=== PATIENT | female | born 1960 | race Caucasian/White ===

== ENCOUNTER → 2016-06-26 | Day surgery (SDC) | payer BC ==
[~2016-06-26] MED LIST: ACETAMINOPHEN 1000 MG/100 ML VIAL IV ONE; BUPIVACAINE/EPINEPHRINE 0.25% 50 ML VIAL ONE; ISOSULFAN BLUE 50 MG/5 ML VIAL SQ ONE; KETOROLAC TROMETHAMINE 30 MG/ML (IVP) VIAL ONE; LACTATED RINGER'S 1000 ML INJ 1,000 ML ONE; LEVO-154 PO; MELO-1 PO; MIDAZOLAM HCL 2 MG/2 ML VIAL ONE; OMEP20TA PO; ONDANSETRON HCL 4 MG/2 ML VIAL IV PUSH ONE; PROPOFOL 200 MG/20 ML AMP IV ONE; SIMV40TA PO; TEMA15CA PO; VALS160T4 PO; [UNRECOGNIZED DRUG - CODE] PO; ceFAZolin 2 GM PREMIX 50 ML ONE
--- NOTE | 2016-06-26 16:43 | TN ---
cc: TEDDY TEMPLE DATE OF SURGERY 06/26/2016 PREOPERATIVE DIAGNOSIS Thin melanoma left upper extremity. POSTOPERATIVE DIAGNOSIS Thin melanoma left upper extremity. PROCEDURE 1. [place] lymph node biopsy left axilla. 2. Wide excision of left upper extremity melanoma with layered closure of wound 3 cm x 7 cm. ANESTHESIA General. ATTENDING SURGEON Teddy Temple MD [employer] SAL[employer] Staff. COMPLICATIONS None. FINDINGS Three sentinel nodes, one palpable and two hot. INDICATIONS FOR PROCEDURE The patient is a 56-year-old female who was recently diagnosed with a left upper extremity melanoma. The patient was originally diagnosed with melanoma in situ and underwent an excision of this in the office that returned invasive melanoma. After discussion with the patient about the risks, benefits, alternatives to wide excision and sentinel lymph node biopsy for the base of melanoma. She agreed to undergo the procedure. PROCEDURE After informed consent was obtained the patient was taken to the operating room, placed in the supine position. The patient had general anesthesia. The patient's left arm and axilla were prepped and draped in the usual sterile fashion. Time-out was performed. We used local anesthetic instilled into the left axillary hairline area. We incised approximately 3 cm incision at the axillary hairline with a 15 blade scalpel. We used Bovie electrocautery to dissect through the SQ tissue and open the axillary tissue. The patient undergone preoperative lymphoscintigraphy which showed at least one lymph node in the left axilla, this was marked. We did encounter one small palpable node and two hot nodes and these were excised with the Bovie electrocautery without difficulty. There is minimal dissection done in the axilla as well. We had excellent hemostasis and we closed the CP fascia and the subcutaneous tissue with 3-0 Vicryl. We then closed the skin with 4-0 Monocryl and Dermabond. Attention turned towards the left upper extremity. This was marked off with a 1 cm excision around the patient's previous biopsy site. More than 1 cm was not taken due to this going across a joint and skin and concern for possible contracture. We were then able to excise this 360 degrees around the scar at least 1 cm with the `5 blade scalpel. Local anesthetic was used at this site as well. We Then used the Bovie electrocautery to dissect the subcutaneous tissue and remove this down to the superficial fascia of the arm. This was passed off with a stitch marked superior portion of the wound. We then turned our attention towards closure. We did a small amount of undermining and this was closed under minimal tension with several deep dermal 2-0 Vicryl sutures. We then placed 4-0 Monocryl and Steri-Strips on the wound with a good technical result and we used a sterile dressing and Shar wrap around the dressing. The patient was discontinued from anesthesia, taken to PACU in stable condition. The patient tolerated the procedure well. No apparent complications. All counts were correct. I was present and scrubbed for the entire procedure. MD LOCO Brady/RITA /3:54 PM /4:25 PM [id number]
== END | disposition home or self-care (01) ==
LOC: ESDC 09:08
PROVIDERS: ATTEND Surgery
DX: C43.62 Malignant melanoma of left upper limb, including shoulder (principal)
CPT/HCPCS: 00400; 01610; 11606; 12032; 38525; 88305; 88307; 88341; 88342; J0131; J0690; J1885; J2250; J2405; J3010; J7120; Q9968